=== PATIENT | male | born 1985 | race American Indian/Alaskan Native ===

== ENCOUNTER 2021-12-01 01:44 | Emergency (ER) | payer SELFPAY ==
[2021-12-01] MEDS ORDERED: ONDANSETRON 4 MG ODT TAB PO PRN (02:54)
[2021-12-01] MEDS ORDERED: chlordiazePOXIDE 25 MG CAP PO PRN ×2 (02:54)
[2021-12-01] MEDS ORDERED: DEXTROSE 50% IN WATER (25GM) 50 ML VIAL IV PRN (02:54)
[2021-12-01] MEDS ORDERED: LORazepam 2 MG/ML VIAL IM PRN (02:54)
[2021-12-01] MEDS ORDERED: HALOPERIDOL LACTATE 5 MG/1 ML INJ IM PRN (02:54)
[2021-12-01] MEDS ORDERED: LORazepam 2 MG/ML VIAL IV PRN (02:54)
[2021-12-01] MEDS ORDERED: LORazepam 2 MG TAB PO PRN ×2 (02:54)
--- NOTE | 2021-12-01 02:57 | Emergency Department Report ---
ED General Adult HPI - General Chief complaint: Alcohol Stated complaint: ETOH/COUGH PUI?: Yes Time Seen by Provider: 12/01/21 02:54 Source: patient, EMS (Verbal report received from emergency medical services. EMS documentation not available at time of chart dictation ), RN notes reviewed Mode of arrival: Stretcher Limitations: Altered Mental Status, Other (Alcohol intoxication. Patient is a poor historian) - History of Present Illness Initial comments: The patient was evaluated in the emergency department for symptoms described in the history of present illness. He/she was evaluated in the context of the global COVID-19 pandemic, which necessitated consideration that the patient might be at risk for infection with the virus that causes COVID-19. Institutional protocols and algorithms that pertain to the evaluation of patients at risk for COVID-19 are in a state of rapid change based on information released by regulatory bodies including the CDC and federal and state organizations. These policies and algorithms were followed during the patient's care in the emergency department. Please note that these policies, procedures and recommendations changed on a rapid basis. Patient is a 36-year-old gentleman. He is not known to myself previously. He is brought to the hospital by emergency medical services. History primarily obtained from EMS. EMS reports that this patient is an employee of a local [employer], and reports that they were called because the patient presented to work, will not schedule to work, and was intoxicated. Apparently had some prehospital behavioral issues, and thus 911 was activated. EMS states this patient has been a missing person for the past few days, and may have had multiple evaluations at multiple emergency rooms. He apparently also has a cough. The patient himself denies physical pain. He denies homicidality and suicidality. The patient tells me he is from [place]. The patient is not accompanied by friends or family this time for collateral information or additional information. The patient believes he had a COVID vaccination. -: This evening - Related Data Previous Rx's Medication Instructions Recorded Last Taken Type Multivitamin with Folic Acid [[facility] 400 mcg PO QDAY #30 tablet 12/01/21 Unknown Rx One Daily Essential Tablet] chlordiazePOXIDE [Librium] 25 mg PO Q6H PRN #25 capsule 12/01/21 Unknown Rx Allergies Allergy/AdvReac Type Severity Reaction Status Date / Time No Known Allergies Allergy Verified 12/01/21 02:43 ED Review of Systems ROS: Stated complaint: ETOH/COUGH Other details as noted in HPI Comment: Unobtainable due to pts medical conditions (Patient is intoxicated) Constitutional: denies: fever Respiratory: cough Cardiovascular: denies: chest pain Gastrointestinal: denies: abdominal pain Psychiatric: denies: homicidal thoughts, suicidal thoughts ED Past Medical Hx - Past Medical History Previous Medical History?: No - Medications Home Medications: Home Medications Medication Instructions Recorded Confirmed Last Taken Type Multivitamin with Folic Acid [[facility] 400 mcg PO QDAY #30 tablet 12/01/21 Unknown Rx One Daily Essential Tablet] chlordiazePOXIDE [Librium] 25 mg PO Q6H PRN #25 capsule 12/01/21 Unknown Rx ED Physical Exam - General Limitations: Other (Intoxication) General appearance: appears intoxicated - Head Head exam: Present: atraumatic, normocephalic - Eye Eye exam: Present: normal appearance, EOMI. Absent: nystagmus - ENT ENT exam: Present: normal exam, normal orophraynx, mucous membranes moist, normal external ear exam - Neck Neck exam: Present: normal inspection, full ROM. Absent: tenderness, meningismus - Respiratory Respiratory exam: Present: other (Pulmonary auscultation not performed secondary to lack of disposable stethoscope). Absent: stridor - Cardiovascular Cardiovascular Exam: Present: other (Cardiac auscultation not performed secondary to lack of disposable stethoscope). Absent: JVD - GI/Abdominal GI/Abdominal exam: Present: soft. Absent: distended, tenderness, guarding, rebound, rigid, pulsatile mass - Rectal Rectal exam: Present: deferred - Extremities Exam Extremities exam: Present: full ROM, other (2+ pulses noted in the bilateral upper and lower extremities. There is no palpable cord. negative Homans sign. Muscular compartments are soft. The pelvis is stable.). Absent: normal inspection (Abrasions noted to the dorsal aspect of the bilateral toes), calf tenderness - Back Exam Back exam: Present: normal inspection, full ROM. Absent: tenderness, CVA tenderness (R), CVA tenderness (L), paraspinal tenderness, vertebral tenderness - Neurological Exam Neurological exam: Present: alert (The patient is alert to name. The patient is clinically intoxicated), other (No facial droop. Tongue midline. Extraocular movements intact bilaterally. Facial sensation intact to light touch in V1, V2, V3 distribution bilaterally. 5 and a 5 strength in 4 extremities. Sensation intact to light touch in 4 extremities.) - Psychiatric Psychiatric exam: Present: anxious, flat affect. Absent: homicidal ideation, suicidal ideation - Skin Skin exam: Present: warm, dry, intact, normal color. Absent: rash ED Course Vital Signs 12/01/21 12/01/21 02:43 09:33 Temperature 98.4 F 98.0 F Pulse Rate 88 66 Respiratory 18 16 Rate Blood Pressure 130/70 Blood Pressure 135/82 [Left] O2 Sat by Pulse 98 100 Oximetry - Reevaluation(s) Reevaluation #1: 12/01/21 03:34 Differential diagnosis, including but not limited to: Alcohol intoxication, COVID, closed head injury, cervical spine injury, encounter for behavioral hea lth screening examination, encounter for medical screening examination Assessment and plan: 36-year-old gentleman, who is afebrile with reassuring vital signs but is clinically intoxicated disorganized, obviously unable to care for self, but not homicidal or suicidal, cooperative, meets criteria for 2013 involuntary hold secondary to the aforementioned. Obtain chest x-ray, appropriate laboratory studies, noncontrast CT scan of the brain and cervical spine, and reassess when clinically sober. Anticipate discharge once this patient is clinically sober Reevaluation #2: 12/01/21 03:36 Even if this patient is COVID-19 positive, his chest x-ray is clear, he is saturating 98% on room air, no medical intervention necessary at this time, supportive care and expectant management. 12/01/21 04:10 Laboratory studies reviewed and appreciated. Transaminitis likely secondary to alcoholism. As expected, patient has chronically elevated blood alcohol level. CT scan brain and cervical spine pending. 12/01/21 04:18 CT scan of the brain and cervical spine negative for acute traumatic findings. Patient will be observed in this ER pending clinical sobriety Care be transferred to the oncoming ER physician, to reassess and disposition/discharge this patient when clinically sober. I anticipate that when clinically sober, if the patient endorses no complaints, and is of sound mind, it is appropriate to discharge him as an outpatient 12/01/21 04:30 ED Medical Decision Making - Lab Data Result diagrams: 12/01/21 02:59 12/01/21 02:59 Vital Signs 12/01/21 02:43 Temperature 98.4 F Pulse Rate 88 Respiratory 18 Rate Blood Pressure 135/82 [Left] O2 Sat by Pulse 98 Oximetry Lab Results 12/01/21 Range/Units 02:59 WBC 7.1 (4.5-11.0) K/mm3 RBC 3.86 (3.65-5.03) M/mm3 Hgb 13.0 (11.8-15.2) gm/dl Hct 37.1 (35.5-45.6) % MCV 96 H (84-94) fl MCH 34 H (28-32) pg MCHC 35 H (32-34) % RDW 12.3 L (13.2-15.2) % Plt Count 312 (140-440) K/mm3 Lymph % (Auto) 29.5 (13.4-35.0) % [place] % (Auto) 5.0 (0.0-7.3) % Eos % (Auto) 0.9 (0.0-4.3) % Baso % (Auto) 2.6 H (0.0-1.8) % Lymph # (Auto) 2.1 (1.2-5.4) K/mm3 [place] # (Auto) 0.4 (0.0-0.8) K/mm3 Eos # (Auto) 0.1 (0.0-0.4) K/mm3 Baso # (Auto) 0.2 H (0.0-0.1) K/mm3 Seg Neutrophils % 62.0 (40.0-70.0) % Seg Neutrophils # 4.4 (1.8-7.7) K/mm3 Lab Results 12/01/21 12/01/21 12/01/21 Range/Units 02:59 02:59 02:59 WBC 7.1 (4.5-11.0) K/mm3 RBC 3.86 (3.65-5.03) M/mm3 Hgb 13.0 (11.8-15.2) gm/dl Hct 37.1 (35.5-45.6) % MCV 96 H (84-94) fl MCH 34 H (28-32) pg MCHC 35 H (32-34) % RDW 12.3 L (13.2-15.2) % Plt Count 312 (140-440) K/mm3 Lymph % (Auto) 29.5 (13.4-35.0) % [place] % (Auto) 5.0 (0.0-7.3) % Eos % (Auto) 0.9 (0.0-4.3) % Baso % (Auto) 2.6 H (0.0-1.8) % Lymph # (Auto) 2.1 (1.2-5.4) K/mm3 [place] # (Auto) 0.4 (0.0-0.8) K/mm3 Eos # (Auto) 0.1 (0.0-0.4) K/mm3 Baso # (Auto) 0.2 H (0.0-0.1) K/mm3 Seg Neutrophils % 62.0 (40.0-70.0) % Seg Neutrophils # 4.4 (1.8-7.7) K/mm3 PT 13.5 (12.2-14.9) Sec. INR 0.93 (0.87-1.13) Sodium 144 (137-145) mmol/L Potassium 4.3 (3.6-5.0) mmol/L Chloride 101.2 (98-107) mmol/L Carbon Dioxide 28 (22-30) mmol/L Anion Gap 19 mmol/L BUN 8 L (9-20) mg/dL Creatinine 0.7 L (0.8-1.3) mg/dL Estimated GFR > 60 ml/min BUN/Creatinine Ratio 11 % Glucose 90 (75-100) mg/dL Calcium 8.8 (8.4-10.2) mg/dL Magnesium 1.90 (1.7-2.3) mg/dL Total Bilirubin 0.70 (0.1-1.2) mg/dL AST 326 H (5-40) units/L ALT 222 H (7-56) units/L Alkaline Phosphatase 102 (35-129) units/L Total Protein 7.3 (6.3-8.2) g/dL Albumin 4.6 (3.9-5) g/dL Albumin/Globulin Ratio 1.7 % Salicylates (2.8-20.0) mg/dL Acetaminophen (10.0-30.0) ug/mL Plasma/Serum Alcohol (0-0.07) % 12/01/21 12/01/21 12/01/21 Range/Units 02:59 02:59 02:59 WBC (4.5-11.0) K/mm3 RBC (3.65-5.03) M/mm3 Hgb (11.8-15.2) gm/dl Hct (35.5-45.6) % MCV (84-94) fl MCH (28-32) pg MCHC (32-34) % RDW (13.2-15.2) % Plt Count (140-440) K/mm3 Lymph % (Auto) (13.4-35.0) % [place] % (Auto) (0.0-7.3) % Eos % (Auto) (0.0-4.3) % Baso % (Auto) (0.0-1.8) % Lymph # (Auto) (1.2-5.4) K/mm3 [place] # (Auto) (0.0-0.8) K/mm3 Eos # (Auto) (0.0-0.4) K/mm3 Baso # (Auto) (0.0-0.1) K/mm3 Seg Neutrophils % (40.0-70.0) % Seg Neutrophils # (1.8-7.7) K/mm3 PT (12.2-14.9) Sec. INR (0.87-1.13) Sodium (137-145) mmol/L Potassium (3.6-5.0) mmol/L Chloride (98-107) mmol/L Carbon Dioxide (22-30) mmol/L Anion Gap mmol/L BUN (9-20) mg/dL Creatinine (0.8-1.3) mg/dL Estimated GFR ml/min BUN/Creatinine Ratio % Glucose (75-100) mg/dL Calcium (8.4-10.2) mg/dL Magnesium (1.7-2.3) mg/dL Total Bilirubin (0.1-1.2) mg/dL AST (5-40) units/L ALT (7-56) units/L Alkaline Phosphatase (35-129) units/L Total Protein (6.3-8.2) g/dL Albumin (3.9-5) g/dL Albumin/Globulin Ratio % Salicylates < 0.3 L (2.8-20.0) mg/dL Acetaminophen 5.0 L (10.0-30.0) ug/mL Plasma/Serum Alcohol 0.30 H (0-0.07) % Vital Signs 12/01/21 02:43 Temperature 98.4 F Pulse Rate 88 Respiratory 18 Rate Blood Pressure 135/82 [Left] O2 Sat by Pulse 98 Oximetry - Radiology Data Radiology results: pending, report reviewed, image reviewed CHEST 1 VIEW INDICATION: Alcohol Intoxication. COMPARISON: None FINDINGS: SUPPORT DEVICES: None. HEART: Within normal limits. LUNGS/PLEURA: Minimal streaky right basilar atelectasis versus scarring with otherwise clear lungs. ADDITIONAL FINDINGS: None. IMPRESSION: 1. No acute findings. Signer Name: Mani Brown MD Signed: 12/01/2021 2:36 AM Workstation Name: [id number] CT cervical spine without contrast INDICATION: Alcohol Intoxication. TECHNIQUE: Axial imaging performed through the cervical spine without the use of contrast. Sagittal and coronal reconstructed images were also reviewed. All CT scans at this location are performed using CT dose reduction for ALARA by means of automated exposure control. COMPARISON: None FINDINGS: Alignment: Spinal alignment is normal. Bones: There is no acute osseous abnormality. Mild multilevel discogenic DJD is present. Soft tissues: No acute or significant incidental soft tissue abnormality. IMPRESSION: No acute abnormality. Signer Name: Mani Brown MD Signed: 12/01/2021 3:20 AM Workstation Name: [id number] CT head without contrast INDICATION : Alcohol Intoxication. TECHNIQUE: Axial imaging performed from the skull apex through the skull base without the use of contrast. All CT scans at this location are performed using CT dose reduction for ALARA by means of automated exposure control. COMPARISON: None FINDINGS: Parenchyma: No acute intracranial hemorrhage or parenchymal abnormality. Ventricles: Ventricles are normal in size and appear symmetric. Soft tissues: Soft tissues including the orbits appear normal. Bones: No acute osseous ab normality. Sinuses: Sinuses and mastoid air cells are clear. IMPRESSION: No acute abnormality. Signer Name: Mani Brown MD Signed: 12/01/2021 3:20 AM Critical care attestation.: If time is entered above; I have spent that time in minutes in the direct care of this critically ill patient, excluding procedure time. ED Disposition Clinical Impression: Alcohol intoxication, Cough, Encounter for behavioral health screening, Encounter for medical screening examination, Transaminitis Disposition: HOME / SELF CARE / HOMELESS Is pt being admited?: No Does the pt Need Aspirin: No Condition: Good Additional Instructions: We recommend that patient not drive or operate motor vehicles until cleared to do so by a primary care doctor. Laboratory studies today demonstrated abnormal liver function test, likely secondary to chronic alcoholism. Recommend that patient taper/discontinue alcohol consumption. Take the multivitamin as directed, and Librium medication as needed for sensation of alcohol dependence and withdrawal. Recommend that patient follow-up with a primary care doctor within 5 to 7 days for repeat checkup and evaluation. Recommend outpatient COVID-19 test. Please return to the emergency room right away with new pain, worsened pain, migration of pain, projectile vomiting, change in mental status, confusion, inability tolerate liquid feeds, new, worsened or different symptoms not present on the initial emergency room evaluation Prescriptions: Multivitamin with Folic Acid [[facility]vs One Daily Essential Tablet] 400 mcg PO QDAY #30 tablet chlordiazePOXIDE [Librium] 25 mg PO Q6H PRN #25 capsule PRN Reason: Alcohol Withdrawal Referrals: [facility] [Provider Group] - 7-10 days
[2021-12-01 03:19] LABS: Basophils # (Auto) 0.2 K/mm3 (0.0-0.1); Basophils % (Auto) 2.6 % (0.0-1.8); Eosinophils # (Auto) 0.1 K/mm3 (0.0-0.4); Eosinophils % (Auto) 0.9 % (0.0-4.3); Hematocrit 37.1 % (35.5-45.6); Lymphocytes # (Auto) 2.1 K/mm3 (1.2-5.4); Lymphocytes % (Auto) 29.5 % (13.4-35.0); Mean Corpuscular HGB Conc 35 % (32-34); Mean Corpuscular Volume 96 fl (84-94); Monocytes # (Auto) 0.4 K/mm3 (0.0-0.8); Platelet Count 312 K/mm3 (140-440); Red Blood Count 3.86 M/mm3 (3.65-5.03); Red Cell Distribution Width 12.3 % (13.2-15.2)
[2021-12-01 03:37] LABS: Alanine Aminotransferase 222 units/L (7-56); Albumin 4.6 g/dL (3.9-5); Blood Urea Nitrogen 8 mg/dL (9-20); Calcium 8.8 mg/dL (8.4-10.2); Hemolysis Index 5
[2021-12-01 03:40] LABS: BUN/Creatinine Ratio 11
--- NOTE | 2021-12-01 03:40 | XRay Report ---
CHEST 1 VIEW INDICATION: Alcohol Intoxication. COMPARISON: None FINDINGS: SUPPORT DEVICES: None. HEART: Within normal limits. LUNGS/PLEURA: Minimal streaky right basilar atelectasis versus scarring with otherwise clear lungs. ADDITIONAL FINDINGS: None. IMPRESSION: 1. No acute findings. Signer Name: Mani Brown MD Signed: 12/01/2021 3:36 AM Workstation Name: [id number]
[2021-12-01 03:56] LABS: INR 0.93 (0.87-1.13)
--- NOTE | 2021-12-01 04:24 | Cat Scan Report ---
CT head without contrast INDICATION : Alcohol Intoxication. TECHNIQUE: Axial imaging performed from the skull apex through the skull base without the use of con trast. All CT scans at this location are performed using CT dose reduction for ALARA by means of aut omated exposure control. COMPARISON: None FINDINGS: Parenchyma: No acute intracranial hemorrhage or parenchymal abnormality. Ventricles: Ventricles are normal in size and appear symmetric. Soft tissues: Soft tissues including the orbits appear normal. Bones: No acute osseous abnormality. Sinuses: Sinuses and mastoid air cells are clear. IMPRESSION: No acute abnormality. Signer Name: Mani Brown MD Signed: 12/01/2021 4:20 AM Workstation Name: [id number]
--- NOTE | 2021-12-01 04:25 | Cat Scan Report ---
CT cervical spine without contrast INDICATION: Alcohol Intoxication. TECHNIQUE: Axial imaging performed through the cervical spine without the use of contrast. Sagittal and coronal reconstructed images were also reviewed. All CT scans at this location are performed us ing CT dose reduction for ALARA by means of automated exposure control. COMPARISON: None FINDINGS: Alignment: Spinal alignment is normal. Bones: There is no acute osseous abnormality. Mild multilevel discogenic DJD is present. Soft tissues: No acute or significant incidental soft tissue abnormality. IMPRESSION: No acute abnormality. Signer Name: Mani Brown MD Signed: 12/01/2021 4:20 AM Workstation Name: [id number]
--- NOTE | 2021-12-01 09:31 | Emergency Department Report ---
Blank Doc - Documentation Documentation: [id number] assumed care of this patient. Clinical sobriety is pending. 0915-patient is not clinically sober. He is looking for shoes. He was discharged as written.
[2021-12-01 09:35] VITALS: BP 130/70
== END 2021-12-01 11:00 | disposition home or self-care (01) ==
LOC: ED 01:44
DX: Z04.6 Encounter for general psychiatric examination, requested by authority (principal); F10.129 Alcohol abuse with intoxication, unspecified; R79.1 Abnormal coagulation profile; R74.01 Elevation of levels of liver transaminase levels; Z79.899 Other long term (current) drug therapy; Y90.9 Presence of alcohol in blood, level not specified
CPT/HCPCS: 36415; 70450; 71045; 72125; 80053; 80320; 83735; 85025; 85610; 99284; G0480